=== PATIENT | female | born 1950 | race Caucasian/White ===

== ENCOUNTER 2019-06-25 10:30 | Outpatient (RCR) | payer MEDICARE, OTHER, SELFPAY ==
--- NOTE | 2019-05-28 12:42 | HP.PTEVAL ---
Patient's Visit Information MARK COREAS is a 69 year old F referred to Physical Therapy by RYLEY BARLOW with a diagnosis of Left Shoulder Pain. Date of Evaluation: 05/28/19 Physical Therapist: Libby Goodman DPT - Visit Plan Frequency: 2x /Week Duration: 4 Weeks Plan: Focus on UE strengthening, scpaulr strength/stabilization, improving ROM, improving posture, and decreasing pain. 05/28/19 HEP Prescribed: scapular retractions, chin tucks, bilateral ext. rot., serratus wall presses - Subjective Findings: L shoulder pain end of March, fell in garden bed on a rock. Hit side of shoulder on rock, got back up and tryed to push through the pain. [place] like a rwally bad bruise. Dealt with pain for two months & pain did not subside and was having problems moving. Not keeping her from doing what she wants to do, but makes it uncomfortable at times. Went to , didn't think x-ray was needed, referred to therapy for before trying MRI - believed to be RC tear - 05/13/19. No pain touching it, just w/ movement - described as a deep ache that gets worse w/ certain movements. IS making it hard for her to sleep - usually sleeps on L side. Worst: 5-6/10 Aggravating Factors: any movement behind the back, reaching activities, holding purse over L shoudler, driving, washing back in shower, slight difficulty getting dressed in the morning. Best: pain free at times. Relieving: Rest, rubs shoulder, heat. Chris changes in sergeant of corrections strength. N/T in L forearm. [place]chey pain localized ant. upper arm. Pain has radiated up the neck at times, none down the arm. 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 Other activities: yard work, freq. senior front end web developer, takes care of goats, cleaning the house. Freq. uses R arm w/ activities rather than the L. Pt. reports she does not have a hx of falls, but is prone to be off balance. Chris any headaches/dizziness. PMH/Meds: see chart. R handed dominance. - Objective Posture: RS, FH - correct w/ v.c but not maintained. Gait: no deviations noted - good L arm swing & trunk rot. ROM: Wrist/Elbow WFL, Shoulder: Flex/Abd WFL - pulling pain at end-range & w/ overpressure, Int. Rot. - can only reach L post. hip - painful, ext. rot. WFL. Cervical: Flex/ext WFL, L Rot/SB WFL, R Rot/SB 25% diminshed. Strength: Elbow Flex 4/5 (painful w/ testing) Ext 5/5. Shoulder: Flex 4-/5 painful, Abd. 4-5 painful, add. 5/5 IR/ER from neutral 4-/5 no pain scap: poor. Events Director Strength: R 40#, 40#, 40#, L 35#, 35#, 30#. Finger Dexterity: WNL. Palpation: NTTP t/o. Special Tests: Empty Can/Full Can (+), Drop Arm (-), Lift Off (+), Lat. Rot. Lag Sign (+), Iverson-Ivan (+), Yergasons (-). Upper limb. nerve tension: negative - Goals Goal 1:: Pt. will be I w/ HEP & progression Goal Time Frame: 4-6 Weeks Goal 2:: Pt. will be able to reach behind her back to demo full shoulder int. rot. ROM Goal Time Frame: 4-6 Weeks Goal 3:: Pt. will demo 5/5 L UE strength Goal Time Frame: 4-6 Weeks Goal 4:: Pt. will maintain proper posture t/o tx session. to demo improved core strength. Goal Time Frame: 4-6 Weeks - Rehabilitation Potential Physical Therapy Diagnosis: Presents w/ hypmobility, UE weakness, poor posture, decreased sergeant of corrections strength, and impaired ROM, which leads to pain performing ADL's. Rehabilitation Potential: Good - Anticipated Interventions Patient/Client Instruction: Educate patient on: Condition For the Purpose of:: To decrease pain Therapeutic Exercise to Include: Strength training, Endurance training, Body mechanics, Postural training, Passive ROM, Active ROM, Scapular Strength/Stabilization For the Purpose of:: To improve muscle performance and motor function Cryotherapy (ice pack, ice massage): Yes Thermo therapy (hot pack): Yes Ultrasound (thermal/non thermal): Yes For the Purpose of:: To decrease pain Thank you for the opportunity to evaluate your patient. For Medicare and Medicare HMO plans, please review the plan of care and approve it. It will need to be FAXED BACK to us at [phone] for Medicare purposes. For Medicare only, by signing this I certify the plan of care. Please let me know if there are questions or concerns regarding this plan of care. Physician Signature: Date:
--- NOTE | 2019-06-25 10:42 | HP.PTDCSUM ---
HP - PT D/C Summary It has been my pleasure to treat MARK COREAS under orders from RYLEY BARLOW, for the diagnosis of Left Shoulder Pain for a total of 8 visit(s). Discharge Date: Please see the following information for a summary of their discharge status. - Subjective Subjective: Patient reports that the shoulder is good-is able to now do all her activities- does still have some discomfort 1-2/10 achy when she puts her arm behind her back. - Pain Left Shoulder Pain Intensity (Out of 10): 5 - Overall Improvement % Improvement: 98 - Objective Objective/Function: Posture: RS, FH - correct w/ v.c but not maintained. Gait: no deviations noted - good L arm swing & trunk rot. ROM: Wrist/Elbow WFL, Shoulder: WFL in all planes- slow with IR but able to complete- cautious. Cervical: WFL in all planes. Strength: Elbow Flex 4+/5 Ext 5/5. Shoulder: Flex 4+/5, Abd. 4+/5, add. 5/5 IR/ER from neutral 4+/5 no pain scap: fair- no pain with strength testing. Palpation: NTTP t/o. Special Tests: Empty Can/Full Can (+), Drop Arm (-), Lift Off (-), Iverson-Ivan (+) - Goals Goal 1:: Pt. will be I w/ HEP & progression Goal Progress: Goal Met Goal 2:: Pt. will be able to reach behind her back to demo full shoulder int. rot. ROM Goal Progress: Goal Met Goal 3:: Pt. will demo 5/5 L UE strength Goal Progress: Progressing Goal 4:: Pt. will maintain proper posture t/o tx session. to demo improved core strength. Goal Progress: Progressing - Plan Plan: Discharge to I HEP - D/C Information If there are questions or concerns regarding this patient's physical therapy, please feel free to call me at [phone]. Thank you for the referral of this patient. Sincerely, Libby Goodman DPT
== END 2019-06-25 12:23 | disposition home or self-care (01) ==
LOC: PT 10:30
PROVIDERS: Family Provider Family Medicine; PCP Family Medicine
DX: M25.512 Pain in left shoulder (principal)
CPT/HCPCS: 97110; 97161; 97164

== ENCOUNTER → 2020-12-07 09:49 | Outpatient (CLI) | payer MEDICARE, OTHER, SELFPAY ==
[2020-12-07 12:19] LABS: Erythrocyte Sedimentation Rate 7 mm/hr (0-30)
[2020-12-07 12:23] LABS: International Normalized Ratio 1.5; Prothrombin Time (Protime)PT. 17.1 SECONDS (11.7-14.9)
[2020-12-07 12:24] LABS: Absolute Lymphocyte Count 2.41 X10^3/uL (0.83-4.51); Absolute Neutrophil Count 2.4 X10^3/uL (2.0-7.7); Basophil# 0.05 X10^3/uL; Basophil% 0.9 % (0-1); Eosinophil# 0.15 X10^3/uL; Eosinophils% 2.8 % (0-5); Hematocrit 42.1 % (37-47); Hemoglobin 13.6 g/dL (12.0-15.0); Lymphocyte # 2.41 X10^3/ul (4.0); Lymphocyte % 45.1 % (19-41); Mean Corp Hgb Conc 32.3 g/dL (32-36); Mean Corpuscular Hgb 29.5 pg (27.0-32.0); Mean Corpuscular Volume 91.3 fL (81-99); Mean Platelet Vol. 12.1 fl (6.2-12.0); Monocyte# 0.34 X10^3/uL; Monocyte% 6.4 % (0-10); NRBC Flagged by Analyzer 0 % (0-5); Neutrophil # 2.38 X10^3/uL (2.7-7.7); Neutrophil % 44.6 % (47-70); Platelet Count 235 K/mm3 (150-450); Red Blood Count 4.61 M/mm3 (4.2-5.4); White Blood Count 5.3 K/mm3 (4.4-11.0)
[2020-12-07 12:51] LABS: CRP < 2.90 mg/L (0.0-3.0)
== END ==
PROVIDERS: PCP Family Medicine; Referring Provider Ophthalmology; Visit Provider Ophthalmology
DX: H47.10 Unspecified papilledema (principal); M31.6 Other giant cell arteritis; Z79.01 Long term (current) use of anticoagulants
CPT/HCPCS: 36415; 85025; 85610; 85652; 86140

== ENCOUNTER → 2021-03-01 10:43 | Outpatient (CLI) | payer MEDICARE, OTHER, SELFPAY ==
--- NOTE | 2021-03-01 10:48 | RAD_ITS ---
INDICATION: COUGH EXAMINATION/TECHNIQUE: X-RAY - XR Chest 2 Views COMPARISON: None. FINDINGS: Chronic lung changes. Left basilar atelectasis. Tortuous and calcified thoracic aorta. The heart is not enlarged. Postsurgical changes of the right axilla. No pleural effusion or pneumothorax. Degenerative changes of the thoracic spine and shoulders. RAD/Chest PA and Lateral IMPRESSION: No acute radiographic abnormalities. Chronic lung changes. Electronically Signed: Michael Mireles MD at 16:41 EDT Tel , Service support ,
== END ==
PROVIDERS: PCP Family Medicine; Referring Provider Family Medicine; Visit Provider Family Medicine
DX: R05 Cough (principal)
CPT/HCPCS: 71046

== ENCOUNTER 2021-03-23 15:27 | Emergency (ER) | payer MEDICARE, OTHER, SELFPAY ==
[2021-03-23 15:29] VITALS: BP 141/72; PULSE 90; RESP 15; TEMP 36.5; O2SAT 97; BMI 26.4
--- NOTE | 2021-03-23 16:23 | EKG12_ITS ---
Test Reason : NEURO SX Blood Pressure : / mmHG Vent. Rate : 082 BPM Atrial Rate : 082 BPM P-R Int : 124 ms QRS Dur : 076 ms QT Int : 404 ms P-R-T Axes : 070 016 046 degrees QTc Int : 472 ms Normal sinus rhythm Low voltage QRS Borderline ECG Confirmed by RADHA BARAJAS, CAROLYN ([id number]), proposal editor SAMMY MICHELLE ([id number]) on 03/27/2021 10:24:20 AM Referred By: HOA Confirmed By:CAROLYN GARCIA MD
--- NOTE | 2021-03-23 16:23 | CT_ITS ---
STUDY: CT BRAIN WITH AND WITHOUT CONTRAST REASON FOR EXAM: Female, 71 years old. FACTOR V ON BLOOD THINNERS . STROKE IN RIGHT EYE NOVEMBER 2020. LEFT EYE VISION CHANGES X 5 DAYS RADIATION DOSAGE (If Supplied By Facility): CTDIvol = ( 44.99 ) mGy, DLP = ( 1479.73 ) mGycm TECHNIQUE: Transaxial CT imaging of the brain was performed pre and post contrast administration. The examination was performed with intravenous administration of IV 50mL Isovue-370. Individualized dose optimization techniques were used for this CT. COMPARISON: None. FINDINGS: Normal soft tissue structures. Normal calvarium. Normal size ventricles and extra-axial spaces for the patient''s age. Normal white matter tracts of the cerebral hemispheres. Normal basal ganglia and thalami. Normal brainstem. Normal cerebellum. There is no intracranial hemorrhage. There are no findings of an acute ischemic infarction. Normal visualized paranasal sinuses. CT/Brain/Head W/WO Contrast IMPRESSION: Normal unenhanced and enhanced CT scan of the brain. Electronically Signed: Vickey Mccord MD ([place]) at 17:37 EDT , Service support ,
[2021-03-23 16:26] VITALS: BMI 26.4
--- NOTE | 2021-03-23 16:26 | EX.ED.DYSGE1 ---
HPI History of Present Illness Chief Complaint: Neuro S/Sx Informant: patient Onset/Context/Timing Onset: Days Context: Gradual Onset Timing: Continuous Narrative Narrative: Patient is a 71-year-old female presenting with vision changes. Patient was sent in by her stranding machine operator, Dr. Cowart, where she was evaluated for vision changes to her left eye. She had a similar episode with vision loss in the temporal aspect of her right eye in November. 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 She also is history of breast cancer and DVTs. Starting on Friday, 4 days ago she has had progressive changes to the vision in her left eye. She states it started on her anabaptist aspect and has gone across her eye over the inferior half. She she cannot see down there. She denies associated pain. She denies any headaches. She is evaluated by the stranding machine operator and had dilated eye exam. Was noted that her optic nerve appeared edematous. Is recommend she come to the emergency room to rule out temporal arteritis as well as a head CT with and without contrast. Patient denies any other symptoms. She does note that on Friday, 1 week ago, she did lose her footing on her porch and slipped down the door frame. She states she jolted but did not actually hit her head. No other complaints at this time. Prior similar symptoms: Yes PFSH [facility] Medical History Breast CA Cataract Factor 5 Leiden mutation, heterozygous Home Medications prednisone 60 mg PO DAILY #15 tab 03/23/21 [Rx Last Taken Unknown] warfarin 2.5 mg PO DAILY 03/23/21 [History Last Taken 03/22/21] Allergy/AdvReac Type Severity Reaction Status Date / Time prednisone AdvReac NEEDS Verified 03/23/21 15:28 FOLLOW-UP Surgical History History of mastectomy Social History Smoking Status: Never smoker ROS ROS ED Constitutional Constitutional ED: Denies chills or fever(s) Eyes Eyes: Reports change in vision left (Inferior half); Denies diplopia ENT ENT ED: Denies rhinorrhea or sore throat Cardiovascular Cardiovascular: Denies chest pain or palpitations Respiratory/Chest Respiratory/Chest: Denies cough or dyspnea Gastrointestinal Gastrointestinal: Denies abdominal pain, nausea or vomiting Genitourinary Genitourinary ED: Denies dysuria or hematuria Musculoskeletal Musculoskeletal: Denies arthralgias, back pain, myalgias or neck pain Integumentary Denies rash Neurologic Neurologic: Denies headache(s), paresthesias or weakness Psychiatric Psychiatric: Denies anxiety or depression EXAM Physical Exam Const Vital Signs: 03/23/21 15:29 03/23/21 17:40 03/23/21 19:11 Temperature 97.7 F L Temperature Source Temporal Pulse Rate 90 72 72 Respiratory Rate 15 16 16 Blood Pressure 141/72 H 135/76 H 138/74 H Blood Pressure Mean 95 95 95 Pulse Ox 97 98 98 Oxygen Delivery Method Room Air Room Air Room Air Positive well nourished and well developed General Appearance ED: well developed HEENT Reports TM's clear and moist mucous membranes Tympanic Membrane ED: Yes TM's clear Eyes EOMs intact bilaterally Eyes Narrative: Patient's eyes are chemically dilated so they are minimally reactive. She has a visual field cut on the medial aspect of her right eye. No obvious visual field cut in the left eye. Neck supple and no JVD Chest Wall inspection of chest normal Resp normal respiratory effort and clear to auscultation bilaterally Cardio regular rate, regular rhythm and no murmurs GI normal to inspection, nondistended, normoactive bowel sounds Extremity normal to inspection General Extremety ED: Negative for edema General Extremity: Negative for edema Neuro oriented x3 Neuro Narrative: No focal neurologic deficits appreciated. NIH equals 0. Sensorium / Orientation: alert Psych mental status grossly normal Skin no rashes or lesions noted and no wounds MDM MDM MDM Narrative Medical decision making narrative: Patient is evaluated for visual changes to her left eye. She has a history of ischemia to her right eye resulting in visual field changes. She saw her eye doctor today who suspected the same thing was happening again but also wanted to make sure she was not having any other acute process and to get her started on high-dose steroids. Patient's work-up including CT of the head with and without contrast as well as lab work is largely unremarkable. Her INR is slightly subtherapeutic is 1.9. She has no focal neurologic deficits besides decreased vision however she does not have a visual field cut. Her CRP is minimally elevated at 3.47. Discussed with ophthalmology who recommended outpatient follow-up on Friday in the office and start her on 60 mg of prednisone daily for 5 days. Patient is agreeable this plan of care. As she does not have any acute findings on her CT and has been having symptoms for 4 to 5 days I do not think she has a stroke that we are missing. She is not having signs of bleed. Her Coumadin is only mildly subtherapeutic 1.9 and I do not think this is an embolic stroke. Lab Data Labs: Laboratory Results - last 24 hr 03/23/21 03/23/21 03/23/21 16:07 16:09 16:09 WBC 5.6 RBC 4.98 Hgb 14.5 Hct 44.1 MCV 88.6 MCH 29.1 MCHC 32.9 RDW Std Deviation 44.0 H RDW Coeff of Patricio 13.5 Plt Count 234 MPV 11.2 Immature Gran % (Auto) 0.200 Neut % (Auto) 50.1 Lymph % (Auto) 39.1 [place] % (Auto) 7.7 Eos % (Auto) 1.8 Baso % (Auto) 1.1 H Absolute Neuts (auto) 2.8 Absolute Lymphs (auto) 2.18 Nucleated RBC % 0 ESR 8 PT 20.9 H INR 1.9 APTT 32.8 Sodium 143 Potassium 3.9 Chloride 108 H Carbon Dioxide 28.0 Anion Gap 7 BUN 15 Creatinine 0.90 Estim Creat Clear Calc 48.79 Est GFR (MDRD) Af Amer 79 Est GFR (MDRD) Non-Af 66 BUN/Creatinine Ratio 16.7 Glucose 101 Calcium 9.2 Troponin I High Sens 3.8 C-React Prot Ext Range 3.47 H Radiography Diagnostic Testing: Radiology Impression Brain CT 03/23/21 16:23 IMPRESSION: Normal unenhanced and enhanced CT scan of the brain. Electronically Signed: Vickey Mccord MD ([place]) at 17:37 EDT , Service support , Chest X-Ray 03/23/21 16:40 IMPRESSION: No acute radiographic abnormalities. Electronically Signed: Michael Mireles MD at 17:10 EDT Tel , Service support , Rhythm Strip Rhythm Strip: Sinus Rhythm Rate: 82 Ectopy: None EKG Initial EKG: Attestation: I personally reviewed and interpreted this EKG as follows: Interpretation: Sinus Rhythm Comments: Normal sinus rhythm at a rate of 82 Normal axis Normal intervals Normal ST segments Low voltage QRS Treatment and Re-Evaluation Comments:: 1 g Solu-Medrol, outpatient follow-up with ophthalmology Discharge Plan Triage Chief Complaint: Neuro S/Sx ED Provider: Bianca Martinez Dx/Rx/DC Orders Clinical Impression: Change in vision Prescriptions: New prednisone 20 mg tablet 60 mg PO DAILY Qty: 15 RF: 0 No Action warfarin 2.5 mg tablet 2.5 mg PO DAILY RF: 0 Primary Care Provider: Tuan Moscoso Referrals: Juan Cowart MD [STAFF PHYSICIAN] - 2 Days (Follow up on Friday for recheck ) Tuan Moscoso MD [Primary Care Provider] - Activity Restrictions/Additional Instructions: Your INR is 1.9 today. I spoke with ophthalmology who recommended putting you on 60 mg of prednisone daily for the next 5 days. They want to see you back in the office on Friday. At this time you do not require admission to the hospital. Your work-up here was largely normal. Disposition Disposition: Home, Self Care
[2021-03-23 16:30] LABS: Absolute Lymphocyte Count 2.18 X10^3/uL (0.83-4.51); Absolute Neutrophil Count 2.8 X10^3/uL (2.0-7.7); Basophil# 0.06 X10^3/uL; Basophil% 1.1 % (0-1); Eosinophils% 1.8 % (0-5); Hematocrit 44.1 % (37-47); Hemoglobin 14.5 g/dL (12.0-15.0); Lymphocyte # 2.18 X10^3/ul (0.83-4.51); Lymphocyte % 39.1 % (19-41); Mean Corp Hgb Conc 32.9 g/dL (32-36); Mean Corpuscular Hgb 29.1 pg (27.0-32.0); Mean Corpuscular Volume 88.6 fL (81-99); Mean Platelet Vol. 11.2 fl (6.2-12.0); Monocyte# 0.43 X10^3/uL; Monocyte% 7.7 % (0-10); NRBC Flagged by Analyzer 0 % (0-5); Neutrophil # 2.79 X10^3/uL (2.7-7.7); Neutrophil % 50.1 % (47-70); Platelet Count 234 K/mm3 (150-450); RBC Distribution Width CV 13.5 % (11.6-14.6); Red Blood Count 4.98 M/mm3 (4.2-5.4); White Blood Count 5.6 K/mm3 (4.4-11.0)
--- NOTE | 2021-03-23 16:40 | RAD_ITS ---
INDICATION: Neuro deficit, acute, stroke suspected EXAMINATION/TECHNIQUE: X-RAY - XR Chest 1 View COMPARISON: 03/01/2021. FINDINGS: Chronic lung changes. Tortuous and calcified thoracic aorta. The heart is not enlarged. Right axillary lymph node dissection. No pleural effusion or pneumothorax. Degenerative changes of the shoulders and spine. RAD/Chest 1 View IMPRESSION: No acute radiographic abnormalities. Electronically Signed: Michael Mireles MD at 17:10 EDT Tel , Service support ,
[2021-03-23 16:43] LABS: Erythrocyte Sedimentation Rate 8 mm/hr (0-30)
[2021-03-23 16:48] LABS: Anion Gap 7 (5-15); BUN 15 mg/dL (7-18); BUN/Creat Ratio 16.7 RATIO (10-20); CRP 3.47 mg/L (0.0-3.0); Calcium,Total 9.2 mg/dL (8.5-10.1); Chloride 108 mmol/L (98-107); EST Glomerular Filtration Rate 66 mL/min (>60); Est Glom Filt Rate - Afr Amer 79 mL/min (>60); Estimated Creatinine Clearance 48.79 ml/min; Glucose 101 mg/dL (74-106); Potassium 3.9 mmol/L (3.5-5.1); Sodium Level 143 mmol/L (136-145); Troponin-I HS 3.8 pg/mL (3.0-53.7)
[2021-03-23 17:04] LABS: International Normalized Ratio 1.9; Prothrombin Time (Protime)PT. 20.9 SECONDS (11.7-14.9)
[2021-03-23 17:05] LABS: Partial Thromboplast Time 32.8 Seconds (24.1-36.2)
[2021-03-23 17:40] VITALS: BP 135/76; PULSE 72; RESP 16; O2SAT 98
[2021-03-23 19:11] VITALS: BP 138/74; PULSE 72; RESP 16; O2SAT 98
[2021-03-23 19:57] VITALS: BP 138/59; PULSE 74; RESP 16; O2SAT 98
== END 2021-03-23 19:58 | disposition home or self-care (01) ==
PROVIDERS: Emergency Provider Emergency Medicine; PCP Family Medicine
DX: H54.7 Unspecified visual loss (principal); Z79.01 Long term (current) use of anticoagulants; Z85.3 Personal history of malignant neoplasm of breast; Z86.718 Personal history of other venous thrombosis and embolism
CPT/HCPCS: 70470; 71045; 80048; 84484; 85025; 85610; 85652; 85730; 86140; 93005; 96365; 99285; Q9967; A4216; J2930

== ENCOUNTER → 2023-01-31 | Outpatient (CLI) | payer MEDICARE, OTHER, SELFPAY ==
[2023-01-31 18:03] LABS: AST(SGOT) 24 U/L (15-37); Alanine Aminotransfer ALT/SGPT 28 U/L (13-56); Albumin, Serum 3.9 g/dL (3.2-5.0); Alkaline Phosphatase 98 U/L (45-117); Anion Gap 6 (5-15); BUN 16 mg/dL (7-18); BUN/Creat Ratio 17.1 RATIO (10-20); Calcium,Total 9.4 mg/dL (8.5-10.1); Chloride 110 mmol/L (98-107); Cholesterol 189 mg/dL (200); Creatinine, Serum 0.94 mg/dL (0.55-1.02); EST Glomerular Filtration Rate 62 mL/min (>60); Est Glom Filt Rate - Afr Amer 75 mL/min (>60); Globulin 3.9 g/dL (2.2-4.2); Glucose 95 mg/dL (74-106); High Density Lipoprotein 49 mg/dL; Potassium 4.1 mmol/L (3.5-5.1); Protein, Total 7.8 g/dL (6.4-8.2); Sodium Level 144 mmol/L (136-145); Triglycerides 110 mg/dL; Very Low Density Lipoprotein 22 mg/dL (5-40)
== END | disposition home or self-care (01) ==
PROVIDERS: PCP Family Medicine; Referring Provider Family Medicine; Visit Provider Family Medicine
DX: E78.5 Hyperlipidemia, unspecified (principal); D68.51 Activated protein C resistance
CPT/HCPCS: 36415; 80053; 80061

== ENCOUNTER → 2023-12-09 | Outpatient (CLI) | payer MEDICARE, OTHER, SELFPAY ==
[2023-12-09 15:25] LABS: Absolute Lymphocyte Count 2.38 X10^3/uL (0.83-4.51); Absolute Neutrophil Count 3.2 X10^3/uL (2.0-7.7); Basophil# 0.06 X10^3/uL; Eosinophil# 0.13 X10^3/uL; Eosinophils% 2.1 % (0-5); Hematocrit 42.9 % (37-47); Hemoglobin 13.9 g/dL (12.0-15.0); Lymphocyte # 2.38 X10^3/ul (0.83-4.51); Lymphocyte % 38.8 % (19-41); Mean Corp Hgb Conc 32.4 g/dL (32-36); Mean Corpuscular Hgb 29.1 pg (27.0-32.0); Mean Corpuscular Volume 89.7 fL (81-99); Mean Platelet Vol. 12.3 fl (6.2-12.0); Monocyte# 0.32 X10^3/uL; Monocyte% 5.2 % (0-10); NRBC Flagged by Analyzer 0 % (0-5); Neutrophil # 3.23 X10^3/uL (2.7-7.7); Neutrophil % 52.7 % (47-70); Platelet Count 217 K/mm3 (150-450); RBC Distribution Width CV 13.7 % (11.6-14.6); RBC Distribution Width SD 45.3 fl (35.1-43.9); Red Blood Count 4.78 M/mm3 (4.2-5.4); White Blood Count 6.1 K/mm3 (4.4-11.0)
[2023-12-09 15:44] LABS: Erythrocyte Sedimentation Rate 8 mm/hr (0-30)
[2023-12-09 16:30] LABS: ALB/GLOB Ratio 1.1 RATIO (0.9-2.4); AST(SGOT) 23 U/L (15-37); Alanine Aminotransfer ALT/SGPT 33 U/L (13-56); Albumin, Serum 3.8 g/dL (3.2-5.0); Alkaline Phosphatase 96 U/L (45-117); Anion Gap 6 (5-15); BUN 21 mg/dL (7-18); CRP < 2.90 mg/L (0.0-3.0); Calcium,Total 9.2 mg/dL (8.5-10.1); Chloride 110 mmol/L (98-107); Cholesterol 192 mg/dL (200); Creatinine, Serum 1.05 mg/dL (0.55-1.02); EST Glomerular Filtration Rate 54 mL/min (>60); Est Glom Filt Rate - Afr Amer 66 mL/min (>60); Globulin 3.6 g/dL (2.2-4.2); Glucose 90 mg/dL (74-106); High Density Lipoprotein 49 mg/dL; Potassium 3.9 mmol/L (3.5-5.1); Protein, Total 7.4 g/dL (6.4-8.2); Sodium Level 141 mmol/L (136-145); Triglycerides 147 mg/dL; Very Low Density Lipoprotein 29 mg/dL (5-40)
== END | disposition home or self-care (01) ==
PROVIDERS: PCP Family Medicine
DX: E78.5 Hyperlipidemia, unspecified (principal); I73.9 Peripheral vascular disease, unspecified; R20.2 Paresthesia of skin
CPT/HCPCS: 36415; 80053; 80061; 85025; 85652; 86140

== ENCOUNTER → 2024-02-03 | Outpatient (CLI) | payer MEDICARE, OTHER, SELFPAY ==
[2024-02-03 16:10] LABS: Anion Gap 7 (5-15); BUN 16 mg/dL (7-18); BUN/Creat Ratio 17.4 RATIO (10-20); Calcium,Total 9.3 mg/dL (8.5-10.1); Chloride 109 mmol/L (98-107); Creatinine, Serum 0.92 mg/dL (0.55-1.02); EST Glomerular Filtration Rate 63 mL/min (>60); Est Glom Filt Rate - Afr Amer 76 mL/min (>60); Glucose 89 mg/dL (74-106); Potassium 4.1 mmol/L (3.5-5.1); Sodium Level 141 mmol/L (136-145)
== END | disposition home or self-care (01) ==
LOC: MTLAB 11:24
PROVIDERS: PCP Family Medicine; Referring Provider Family Medicine; Visit Provider Family Medicine
DX: R94.4 Abnormal results of kidney function studies (principal)
CPT/HCPCS: 36415; 80048

== ENCOUNTER → 2024-11-30 | Outpatient (CLI) | payer MEDICARE, SELFPAY ==
[2024-11-30 12:21] LABS: Absolute Neutrophil Count 3.1 X10^3/uL (2.0-7.7); Basophil# 0.06 X10^3/uL; Eosinophil# 0.17 X10^3/uL; Eosinophils% 2.8 % (0-5); Hematocrit 42.6 % (37-47); Hemoglobin 14.1 g/dL (12.0-15.0); Lymphocyte % 39.7 % (19-41); Mean Corp Hgb Conc 33.1 g/dL (32-36); Mean Corpuscular Hgb 29.6 pg (27.0-32.0); Mean Corpuscular Volume 89.5 fL (81-99); Mean Platelet Vol. 11.9 fl (6.2-12.0); Monocyte# 0.32 X10^3/uL; Monocyte% 5.3 % (0-10); NRBC Flagged by Analyzer 0 % (0-5); Neutrophil # 3.07 X10^3/uL (2.7-7.7); Neutrophil % 50.9 % (47-70); Platelet Count 232 K/mm3 (150-450); RBC Distribution Width CV 13.8 % (11.6-14.6); RBC Distribution Width SD 45.1 fl (35.1-43.9); Red Blood Count 4.76 M/mm3 (4.2-5.4)
[2024-11-30 12:55] LABS: ALB/GLOB Ratio 1.4 RATIO (0.9-2.4); AST(SGOT) 20 U/L (<=31); Alanine Aminotransfer ALT/SGPT 15 U/L (<=34); Albumin, Serum 4.3 g/dL (3.4-4.8); Alkaline Phosphatase 102 U/L (35-104); Anion Gap 11 (5-15); BUN 18 mg/dL (4-19); BUN/Creat Ratio 17.5 RATIO (10-20); Calcium,Total 9.7 mg/dL (7.6-11.0); Carbon Dioxide 24.1 mmol/L (21.0-32.0); Chloride 106 mmol/L (98-108); Cholesterol 184 mg/dL (<=200); Creatinine, Serum 1.02 mg/dL (0.70-1.20); EST Glomerular Filtration Rate 57 (>60); Glucose 101 mg/dL (70-99); High Density Lipoprotein 48 mg/dL; Low Density Lipoprotein Calc. 112 mg/dL; Potassium 4.5 mmol/L (3.3-5.1); Protein, Total 7.2 g/dL (5.9-8.4); Sodium Level 141 mmol/L (133-145); Total Bilirubin 0.54 mg/dL (0.00-1.30); Triglycerides 119 mg/dL; Very Low Density Lipoprotein 24 mg/dL (5-40); cholesterol:hdl ratio screen 3.83
== END | disposition home or self-care (01) ==
PROVIDERS: PCP Family Medicine; Referring Provider Family Medicine; Visit Provider Family Medicine
DX: I73.9 Peripheral vascular disease, unspecified (principal); E78.5 Hyperlipidemia, unspecified
CPT/HCPCS: 36415; 80053; 80061; 85025